=== PATIENT | female | born 1950 | race Caucasian/White ===

== ENCOUNTER 2017-03-18 07:26 | Day surgery (SDC) | payer OTHER ==
[2017-03-18] MEDS ORDERED: D5 LR 1000 ML 1,000 ML IV ONE (08:06)
[2017-03-18] MEDS ORDERED: DIPRIVAN VIAL 20 ML ONE (09:35)
[2017-03-18 11:07] VITALS: BP 122/63
== END 2017-03-18 10:13 | disposition home or self-care (01) ==
LOC: SURG1 07:26
PROVIDERS: ATTEND Internal Medicine Gastroenterology
PROC: 0DJ08ZZ Inspection of Upper Intestinal Tract, Via Natural or Artificial Opening Endoscopic (ICD-10-PCS; principal; 2017-03-18 10:00)
PROC: 0D757ZZ Dilation of Esophagus, Via Natural or Artificial Opening (ICD-10-PCS; principal; 2017-03-18 10:00)
PROC: 0DB68ZX Excision of Stomach, Via Natural or Artificial Opening Endoscopic, Diagnostic (ICD-10-PCS; principal; 2017-03-18 10:00)
PROC: 0DB88ZX Excision of Small Intestine, Via Natural or Artificial Opening Endoscopic, Diagnostic (ICD-10-PCS; principal; 2017-03-18 10:00)
DX: R13.19 Other dysphagia (principal); R10.13 Epigastric pain; R11.0 Nausea; K21.9 Gastro-esophageal reflux disease without esophagitis; K29.60 Other gastritis without bleeding; K20.8 Other esophagitis; K22.2 Esophageal obstruction; K22.4 Dyskinesia of esophagus
CPT/HCPCS: A4217; J3490; J7120

== ENCOUNTER → 2017-10-19 | Outpatient (CLI) | payer OTHER ==
--- NOTE | 2017-10-19 13:19 | NM ---
HISTORY: Abdominal pain. Clinical concern for gastroparesis/gastric emptying disorder. Nuclear medicine gastric emptying study. Findings: For the purposes of this gastric emptying study, 0.5 mCi of technetium 99m colloid was labeled to dee dee d and administered to the patient, orally. The patient was imaged in the supine position, and images were obtained sequentially to evaluate gastric imaging. Regions of interest were selected over the st omach as well as over appropriate background regions prior to calculating the gastric emptying half-t dc curve. Imaging was taken out to 90 minutes. The gastric emptying half time for this procedure, as calculated, was within normal limits (as the normal half-life ranges between 45 and 110 minutes, dep ending on the specific nuclear medicine laboratory standards). No radiotracer gastroesophageal reflux was identified on this examination. IMPRESSION: Normal gastric emptying half-time of 42 minutes. Reported By:
== END ==
LOC: RAD 08:57
PROVIDERS: ATTEND Internal Medicine Gastroenterology
DX: R11.0 Nausea (principal)
CPT/HCPCS: 78264